=== PATIENT | male | born 1985 | race African-American/Black ===

== ENCOUNTER 2016-12-15 04:47 | Emergency (ER) | payer SELFPAY ==
[~2016-12-15] VITALS: Ht 185.4 cm; Wt 68.0 kg
[2016-12-15] MEDS ORDERED: ASPirin 325 MG TAB ONE (05:44)
[2016-12-15] MEDS ORDERED: ASPirin 325 MG TAB PO ONE (06:00)
[2016-12-15] MEDS ORDERED: MORPHINE SULF INJ 2 MG/ML SYRINGE 1ML IV ONE (06:15)
[2016-12-15] MEDS ORDERED: ONDANSETRON HCL 4 MG/2 ML VIAL IV ONE (06:15)
[2016-12-15 06:18] LABS: Basophils # (auto) 0 uL; Basophils % (auto) 0.5 % (0.0-2.0); Eosinophils # (auto) 0.3 uL; Eosinophils % (auto) 2.5 % (0.0-7.0); Hematocrit 41.6 % (41.0-53.0); Hemoglobin 13.9 g/dL (13.5-17.5); Lymphocytes # (auto) 1.5 uL; Lymphocytes % (auto) 15.1 % (10.0-50.0); Mean Corpuscular Hemoglobin 29.8 pg (28.0-32.0); Mean Corpuscular Hgb Conc. 33.5 g/dL (32.0-36.0); Mean Corpuscular Volume 89.2 fL (80.0-100.0); Mean Platelet Volume 8.5 fL (7.4-10.4); Monocytes # (auto) 0.7 uL; Monocytes % (auto) 6.6 % (0.0-12.0); Neutrophils # (auto) 7.7 uL; Neutrophils % (auto) 75.3 % (37.0-80.0); Platelet Count (auto) 211 10^3/uL (140-450); Red Cell Distribution Width 13.3 % (11.6-16.0); White Blood Cell 10.2 10^3/uL (4.4-10.8)
[2016-12-15 06:33] LABS: INR 1.06 (0.9-1.15); Partial Thromboplastin Time 25.2 sec (22.64-33.71); Prothrombin Time 11.4 sec (9.37-12.3)
[2016-12-15 06:40] LABS: Anion Gap 7 (5-15); Carbon Dioxide 29 mmol/L (21-32); Chloride 108 mmol/L (98-107); Glucose 72 mg/dL (74-106); Potassium 3.9 mmol/L (3.5-5.1); Sodium 144 mmol/L (136-145)
[2016-12-15 06:41] LABS: Albumin 4.2 g/dL (3.4-5.0); Alkaline Phosphatase 50 U/L (45-117); Aspartate Aminotransferase 24 U/L (15-37); BUN/Creatinine Ratio 12.6; Bilirubin, Total 1.1 mg/dL (0.2-1.0); Blood Urea Nitrogen 13 mg/dL (7-18); Calcium 9.4 mg/dL (8.5-10.1); GFR African American 110 mL/min; GFR Non-African American 91 mL/min; Total Protein 7.3 g/dL (6.4-8.2)
[2016-12-15] MEDS ORDERED: LIDOCAINE HCL 2% TOP JELLY 5ML TOP ONE ×2 (07:23→08:00)
[2016-12-15] MEDS ORDERED: BACITRACIN TOP OINT 1 UD PKG TOP ONE ×2 (08:38→08:45)
[2016-12-15] MEDS ORDERED: NEOMYCIN-BACITRACIN-POLYM 15GM TOP OINT TOP ONE (08:45)
[2016-12-15 09:16] LABS: Urine RBC None Seen /hpf (0 - 3)
[2016-12-15 09:35] LABS: Urine Bilirubin Negative (Negative); Urine Blood Negative /uL (Negative); Urine Color Yellow (Yellow); Urine Glucose Normal (Normal); Urine Ketone Negative (Negative); Urine Nitrite Negative (Negative); Urine Squamous Epithelial Cell FEW /hpf (<5); Urine Urobilinogen Normal (Negative)
[2016-12-15 09:38] VITALS: BP 116/72
== END 2016-12-15 10:21 | disposition home or self-care (01) ==
LOC: ER 04:47
DX: M62.838 Other muscle spasm (principal); S50.312A Abrasion of left elbow, initial encounter; V49.9XXA Car occupant (driver) (passenger) injured in unspecified traffic accident, initial encounter; Y93.89 Activity, other specified; Y99.8 Other external cause status; Y92.488 Other paved roadways as the place of occurrence of the external cause
CPT/HCPCS: 36415; 71020; 72040; 73080; 80053; 81001; 84484; 85025; 85610; 85730; 96374; 96375; 99285; G0434; J2270; J2405